=== PATIENT | female | born 1995 | race Two or more races ===

== ENCOUNTER 2024-08-12 19:11 | Emergency (ER) | payer OTHER ==
[~2024-08-12] VITALS: Ht 165.1 cm; Wt 101.2 kg
[2024-08-12] MEDS ORDERED: PR NATAL 400 C1 EACH (19:53)
[2024-08-12] MEDS ORDERED: ENDOMETRIN100 MG (19:54)
[2024-08-12] MEDS ORDERED: PROMETRIUM200 MG (19:54)
[2024-08-12] MEDS ORDERED: HYOSCYAMINE SULFATE 0.125 MG TAB.SUBL SL ONE (21:00)
[2024-08-12] MEDS ORDERED: FAMOTIDINE/PF 20 MG/2 ML VIAL IV PUSH ONE (21:00)
[2024-08-12] MEDS ORDERED: HYOSCYAMINE SULFATE 0.125 MG TAB.SUBL ONE (21:06)
[2024-08-12] MEDS ORDERED: FAMOTIDINE/PF 20 MG/2 ML VIAL ONE (21:06)
[2024-08-12 21:22] LABS: HEMATOCRIT 35.5 % (36.0-45.00); HEMOGLOBIN 11.8 g/dL (12.0-15.00); MEAN CORPUSCULAR HEMOGLOBIN 28.3 pg (27.00-32.0); MEAN CORPUSCULAR HGB CONC 33.3 g/dl (32.0-36.0); PLATELET COUNT 324 K/uL (150-450); RED BLOOD COUNT 4.18 M/uL (4.00-6.00); RED CELL DISTRIBUTION WIDTH 14.9 % (11.5-14.5)
[2024-08-12 22:14] LABS: CALCIUM 9.1 mg/dL (8.5-10.1); CREATININE SERUM 0.57 mg/dL (0.55-1.02); GFR 126.3; POTASSIUM 3.92 mEq/L (3.5-5.1)
[2024-08-12 23:36] LABS: URINE APPEARANCE Cloudy; URINE BILIRRUBIN Negative (NEGATIVE); URINE BLOOD Negative; URINE COLOR Yellow; URINE GLUCOSE Negative (NEGATIVE); URINE KETONE Negative (NEGATIVE); URINE LEUKOCYTE Negative; URINE NITRATE Negative; URINE PROTEIN Negative (NEGATIVE); URINE UROBILINOGEN 0.2 E.U./dl
[2024-08-12 23:39] LABS: URINE BACTERIA 2485.5 uL (0.0-1933); URINE RBC 21.9 uL (0.0-20.8); URINE WBC 7.1 uL (0.0-23.2)
[2024-08-12 23:43] LABS: URINE CAST 0.14 uL (0.0-1.40)
== END 2024-08-13 00:56 | disposition home or self-care (01) ==
LOC: ER 19:12
PROVIDERS: Emergency Medicine
DX: Z34.90 Encounter for supervision of normal pregnancy, unspecified, unspecified trimester (principal); Z3A.14 14 weeks gestation of pregnancy; K52.9 Noninfective gastroenteritis and colitis, unspecified; Z20.822 Contact with and (suspected) exposure to COVID-19; Z88.6 Allergy status to analgesic agent